=== PATIENT | female | born 1950 | race Caucasian/White ===

== ENCOUNTER → 2023-01-01 12:39 | Outpatient (CLI) | payer MEDICARE, SELFPAY ==
--- NOTE | 2023-01-01 12:43 | CA_ITS ---
FINAL REPORT TECHNIQUE: Color Doppler, duplex Doppler and trinh scale sonography of the bilateral neck vasculature was performed. Velocities were measured in the carotid arteries. Stenosis evaluation based on velocity criteria. CLINICAL HISTORY: BRUIT,HLD,SMOKER COMPARISON: None FINDINGS: The peak systolic velocity of the right common carotid artery is 124 cm/sec and internal carotid artery 60 to cm/sec. The diastolic velocity in the internal carotid artery is 15 cm/sec. The ICA/CCA ratio is 1.1. Visually, a small amount of plaque is seen. These findings are consistent with less than 50% stenosis. The external carotid artery is patent. The right vertebral artery is patent with antegrade flow. The peak systolic velocity of the left common carotid artery is 70 cm/sec and internal carotid artery 175 cm/sec. The diastolic velocity in the internal carotid artery is 40 cm/sec. The ICA/CCA ratio is 2.5. Visually, a moderate amount of plaque is seen. These findings are consistent with less than 50% stenosis. The external carotid artery is patent. The left vertebral artery is patent with antegrade flow. IMPRESSION: No evidence of significant carotid stenosis. Bilateral patent vertebral arteries. If indicated, CTA or MRA could further evaluate. Reviewed, Interpreted and Dictated by Erick Lamb III, MD Transcribed by Jeanne Pradhan Authenticated and [facility]
== END ==
PROVIDERS: PCP Family Medicine; Visit Provider Nurse Practitioner Family
DX: R09.89 Other specified symptoms and signs involving the circulatory and respiratory systems (principal)
CPT/HCPCS: 93880